=== PATIENT | male | born 1940 | race Caucasian/White ===

== ENCOUNTER → 2017-09-05 | Day surgery (SDC) | payer OTHER ==
[~2017-09-05] VITALS: Ht 167.6 cm; Wt 97.5 kg
[~2017-09-05] MED LIST: ALLOPURINOL300 M1 PO; COLCHICINE0.6 M2 PO; GEMFIBROZIL600 M1 PO; PREDNISONE10 M2 PO; TRAMADOL HCL50 M1 PO
--- NOTE | 2017-09-05 11:20 | Operative Report ---
Operative/Inv Procedure Report Surgery Date: 09/05/17 Name of Procedure: left renal ESWL, fluoro.: prostate biopsy Pre-Operative Diagnosis: same Post-Operative Diagnosis: same Estimated Blood Loss: scant Surgeon/Cable Tool Operator: Arvind Thomas MD Anesthesia: moderate sedation Specimens: prostate biopsy Complications: none Operative/Procedure Note Note: The patient was taken to the operating room and placed on the ESWL table in supine position. With the patient awake, timeout was performed to confirm correct identity, procedure, laterality, anesthesia, and other pertinent emmanuel- operative information. After adequate anesthesia, the patient was positioned so that the patient's left flank was positioned over the table cut-out, overlying the dome of the treatment head. Once the patient was adequately sedated, fluoroscopy, as well as Renal ultrasound was used to locate the LEFT renal stone. Renal US confirmed the presence of the stone which measured it to be approximately 8 mm lower pole stone. The stone was visible with fluoroscopy. Renal US revealed, no hydronephrosis, and no solid tumor, and presence of the stone. The position of the stone was optimized by using fluoroscopy in AP and oblique views;placing the stone within the ESWL c-arm crosshairs. Once the stone's position was optimized , the LEFT renal E.S.W.L. was initiated at low energy level. After noting the patient's tolerance to the shockwaves, the intensitiy was ramped up to maximum level. At the end of the procedure, the left renal stone had dissintegrated. Of note, a total of 2500 shockwaves were delivered to the stone. After adequate anesthesia and antibiotics, the patient was placed lithotomy stirrups, then draped and prepped in usual surgical fashion. 10 mL of lidocaine Urojet was instilled into the rectal vault. Using digital guidance, and an 18- gauge core needle biopsy gun, prostate biopsy specimens were obtained from the right and left sides. Careful attention was made to obtain specimen at the peripheral areas of the base, middle, and apical prostate tissue on both right and left side. All 6 biopsy cores were sent to pathology in their respective sections. The patient tolerated the ESWL procedures well, was awakened, then taken to recovery in satisfactory condition via stretcher. The patient was dischared home with pain medications, diet orders, and intructions to catch fragments by straining the urine. The patient to to have follow-up renal ultrasound and KUB in 1 to 2 weeks, prior to follow-up visit in my office. He will then proceed with metabolic stone work-up. Discharge Disposition: PACU Additional Comments: f/u 2 weeks for results. CC: Arvind Thomas MD
== END ==
LOC: STS 02:14
DX: N20.0 Calculus of kidney (principal); Z87.442 Personal history of urinary calculi; N42.32 Atypical small acinar proliferation of prostate; R97.20 Elevated prostate specific antigen [PSA]; I10 Essential (primary) hypertension
CPT/HCPCS: 36415; 93005; 93010; J0696; J2250